=== PATIENT | female | born 1990 | race Two or more races ===

== ENCOUNTER 2019-05-30 01:24 | Emergency (ER) | payer MEDICAID ==
[~2019-05-30] VITALS: Ht 160 cm; Wt 95.5 kg
[~2019-05-30 01:24] MED LIST: ASPI162T PO
[2019-05-30 01:30] VITALS: BP 131/88
[2019-05-30] MEDS ORDERED: ASPI-1192 PO (01:40)
[2019-05-30] MEDS ORDERED: NEOMYCIN/POLYMYXIN B/HYDROCORT 10 ML OTIC SUSPENSION AD ONE (02:45)
== END 2019-05-30 02:54 | disposition home or self-care (01) ==
LOC: EMS 01:26
DX: H60.91 Unspecified otitis externa, right ear (principal); S00.451A Superficial foreign body of right ear, initial encounter; Z87.891 Personal history of nicotine dependence; Z79.899 Other long term (current) drug therapy; X58.XXXA Exposure to other specified factors, initial encounter; Y93.89 Activity, other specified; Y92.89 Other specified places as the place of occurrence of the external cause; Y99.8 Other external cause status
CPT/HCPCS: 69200